=== PATIENT | male | born 1975 | race African-American/Black ===

== ENCOUNTER 2023-03-29 23:14 | Emergency (ER) | payer SELFPAY ==
[2023-03-29 23:16] VITALS: BP 161/105; PULSE 86; RESP 15; TEMP 37.2; O2SAT 98; BMI 28.7
--- NOTE | 2023-03-29 23:43 | EX.ED.DYSGE1 ---
HPI History of Present Illness Chief Complaint: Edema Informant: patient Narrative Narrative: 47-year-old male with no past medical history states he has had pain and swelling symmetrically in both lower legs for the past week. He states it waxes and wanes, and when it does it is symmetric bilaterally. He states also he has had some mild swelling and soreness in his knuckles of both hands. He denies any fevers, chills, dyspnea even with exertion or lying flat, chest discomfort, GI symptoms, or problems urinating. He states he has had pain in his right knee for weeks or months, he had some type of surgery on it about 10 years ago he thinks it was just a clean up and states that he saw a [facility] doctor in [place] who told him that maybe his right knee pain was due to an exotic parasite. He has had no travel out of the country or the area recently, or any other immobilization. No recent hospitalization or surgery for any reason. 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 PFSH PFS Medical History no medical history no medical history Home Medications prednisone 20 mg tablet 40 mg (2 x 20 mg) PO DAILY #8 TABLETS 03/30/23 [Rx Last Taken Unknown] Allergy/AdvReac Type Severity Reaction Status Date / Time No Known Allergies Allergy Verified 03/29/23 23:18 Surgical History (Updated 03/29/23 @ 23:[address] Humphrey Chaudhry MD) H/O right knee surgery Social History (Updated 03/29/23 @ 23:[address] Humphrey Chaudhry MD) alcohol intake: current alcohol intake frequency: a few times a week substance use type: does not use ROS ROS ED Constitutional Constitutional ED: Denies chills or fever(s) Eyes Eyes: Denies change in vision or diplopia ENT ENT ED: Denies rhinorrhea or sore throat Cardiovascular Cardiovascular: Reports leg edema; Denies chest pain or palpitations Respiratory/Chest Respiratory/Chest: Denies cough or dyspnea Gastrointestinal Gastrointestinal: Denies abdominal pain, diarrhea, nausea or vomiting Genitourinary Genitourinary ED: Denies dysuria or hematuria Musculoskeletal Musculoskeletal: Reports extremity pain; Denies back pain or neck pain Integumentary Denies abscess or rash Neurologic Neurologic: Denies headache(s), paresthesias or weakness Psychiatric Psychiatric: Denies anxiety or suicidal thoughts EXAM Physical Exam Const Vital Signs: 03/29/23 23:16 Temperature 98.9 F Temperature Source Temporal Pulse Rate 86 Respiratory Rate 15 Blood Pressure 161/105 H Blood Pressure Mean 123 Pulse Ox 98 Oxygen Delivery Method Room Air Positive well nourished and well developed General Appearance ED: well developed and NAD HEENT Reports moist mucous membranes normocephalic and atraumatic Eyes PERRL and EOMs intact bilaterally Neck full ROM, no lymphadenopathy, supple and no JVD Neck Narrative: No thyromegaly or thyroid tenderness Resp normal respiratory effort and clear to auscultation bilaterally Cardio regular rate, regular rhythm and no murmurs Rate: Negative for bradycardia or tachycardic GI non-tender and non-distended Auscultation: normoactive bowel sounds Palpation: soft Back/Spine no CVA tenderness General Back: other FROM Extremity General Extremety ED: Yes edema and tenderness; Negative for pulses abnormal General Extremity: edema bilateral lower extremity Details: moderate (To the mid-distal escobedo symmetrically bilaterally with blanching erythema, no induration/abscess/nidus for infection, and mild tenderness); Negative for pulses abnormal Neuro oriented x3, CN's II-XII intact bilaterally and no sensory deficits noted Sensorium / Orientation: awake and alert Motor Exam: strength 5/5 throughout Psych mental status grossly normal Skin no rashes or lesions noted and no wounds MDM MDM MDM Narrative Medical decision making narrative: Labs were obtained including ESR and CRP which are negative, arguing against acute infectious etiology here, he does have a bit of a leukocytosis but it is not neutrophils, he has a mild monocytosis of unknown significance at this time. Negative proBNP rules out acute congestive heart failure. He has some mild proteinuria but his serum protein and albumin numbers are normal, and he has no signs of renal failure. Whenever he gets the erythema and swelling it is bilateral symmetrically, and it goes down symmetrically. It seems to wax and wane. He has involvement in his fingers. All of this makes bilateral lower leg cellulitis very unlikely as the etiology here. Given this I am going to try him on a course of prednisone before he follows up with someone, to see if that helps. If it worsens everything, he is advised to return and discontinue the medication. Unknown if this could be something rheumatologic. 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 He does not have a PCP, so he was referred to the next doctor on the unassigned list. It is noted that his blood pressure is high, unknown if it has anything to do with this, certainly it is possible although he does not appear to have acute kidney injury right now. He will need to follow-up for recheck. Lab Data Attestation: I reviewed the patient's lab results. Labs: Laboratory Results - last 24 hr 03/29/23 03/30/23 23:59 00:05 WBC 13.0 H RBC 4.02 L Hgb 12.2 L Hct 37.2 L MCV 92.5 MCH 30.3 MCHC 32.8 RDW Std Deviation 47.1 H RDW Coeff of Bipin 13.9 Plt Count 272 MPV 10.2 Immature Gran % (Auto) 0.500 Neut % (Auto) 61.0 Lymph % (Auto) 25.9 Clark % (Auto) 10.6 H Eos % (Auto) 1.2 Baso % (Auto) 0.8 Absolute Neuts (auto) 7.9 H Absolute Lymphs (auto) 3.36 Nucleated RBC % 0 ESR 12 Sodium 137 Potassium 3.5 Chloride 102 Carbon Dioxide 31.0 Anion Gap 4 L BUN 6 L Creatinine 0.90 Estim Creat Clear Calc 99.22 Est GFR (MDRD) Af Amer 117 Est GFR (MDRD) Non-Af 97 BUN/Creatinine Ratio 6.7 L Glucose 103 Calcium 9.6 Total Bilirubin 0.50 AST 57 H ALT 43 Alkaline Phosphatase 70 C-React Prot Ext Range < 2.90 B-Natriuretic Peptide 7.3 Total Protein 7.8 Albumin 3.6 Globulin 4.2 Albumin/Globulin Ratio 0.9 Urine Color Yellow Urine Clarity Clear Urine pH 7.0 Ur Specific [place] 1.010 Urine Protein 30 H Urine Glucose (UA) Normal Urine Ketones Negative Urine Occult Blood Negative Urine Nitrite Negative Urine Bilirubin Negative Urine Urobilinogen 1 H Ur Leukocyte Esterase 25 H Urine RBC 0 SEEN Urine WBC 0 SEEN Ur Squamous Epith Cells 0 SEEN Urine Bacteria 0 SEEN Urine Mucus 0 SEEN Discharge Plan Triage Chief Complaint: Edema ED Provider: Humphrey Chaudhry Dx/Rx/DC Orders Clinical Impression: Edema of both lower legs, Episode of hypertension, Arthralgia of both hands Instructions: ED Peripheral Edema, Bilateral, ED Hypertension, To Be Confirmed Prescriptions: New prednisone 20 mg tablet 40 mg PO DAILY Qty: 8 0RF Primary Care Provider: Care Physician,No Primary Referrals: Fariba Gutierrez MD [Med Staff - Maintenance Helper Utility Engineer] - (call for appt) Care Physician,No Primary [Primary Care Provider] - Activity Restrictions/Additional Instructions: Since you received a dose of prednisone in the emergency department, the prescription can be started either the night of 03/30 or the morning of 03/31 and then taken every 24 hours afterwards until finished. If the medication seems to be making anything worse, you may safely discontinue it and discard the rest. If you develop any trouble breathing return to the emergency department. Your blood pressure was elevated, 161/105 in the ER, this needs to be rechecked as an outpatient, it may or may not be related. Disposition Disposition: Home, Self Care
[2023-03-30 00:04] LABS: Bacteria 0 SEEN /hpf (None Seen); Color, Urine Yellow (Yellow); Glucose, Dipstick Normal (Normal); Ketone-Dipstick Negative (Negative); Leukocyte Esterase-Dipstick 25 /ul (Negative); Mucous, Urine 0 SEEN /hpf (<or=2+); Nitrite-Dipstick Negative (Negative); Occult Blood-Urine Negative /ul (Negative); Protein-Dipstick 30 mg/dl (Negative); Red Blood Cells-Urine 0 SEEN /hpf (0-5); Squamous Epithelial Cells - UA 0 SEEN /hpf (0-5); Urine Bilirubin Dipstick Negative (Negative); Urine Clarity Clear (Clear); Urine Urobilinogen 1 mg/dl (Normal); White Blood Cells 0 SEEN /hpf (0-5)
[2023-03-30 00:15] LABS: Erythrocyte Sedimentation Rate 12 mm/hr (0-20)
[2023-03-30 00:17] LABS: Absolute Lymphocyte Count 3.36 X10^3/uL (0.83-4.51); Absolute Neutrophil Count 7.9 X10^3/uL (2.0-7.7); Basophil% 0.8 % (0-1); Eosinophil# 0.15 X10^3/uL; Eosinophils% 1.2 % (0-5); Hematocrit 37.2 % (40-54); Hemoglobin 12.2 g/dL (13.0-16.5); Lymphocyte # 3.36 X10^3/ul (0.83-4.51); Lymphocyte % 25.9 % (19-41); Mean Corp Hgb Conc 32.8 g/dL (32-36); Mean Corpuscular Hgb 30.3 pg (27.0-32.0); Mean Corpuscular Volume 92.5 fL (80-94); Mean Platelet Vol. 10.2 fl (6.2-12.0); Monocyte# 1.37 X10^3/uL; Monocyte% 10.6 % (0-10); NRBC Flagged by Analyzer 0 % (0-5); Neutrophil # 7.91 X10^3/uL (2.7-7.7); Platelet Count 272 K/mm3 (150-450); RBC Distribution Width CV 13.9 % (11.6-14.6); RBC Distribution Width SD 47.1 fl (35.1-43.9); Red Blood Count 4.02 M/mm3 (4.6-6.2)
[2023-03-30 00:35] LABS: ALB/GLOB Ratio 0.9 RATIO (0.9-2.4); AST(SGOT) 57 U/L (15-37); Alanine Aminotransfer ALT/SGPT 43 U/L (16-61); Albumin, Serum 3.6 g/dL (3.2-5.0); Alkaline Phosphatase 70 U/L (45-117); Anion Gap 4 (5-15); BUN 6 mg/dL (7-18); BUN/Creat Ratio 6.7 RATIO (10-20); CRP < 2.90 mg/L (0.0-3.0); Calcium,Total 9.6 mg/dL (8.5-10.1); Chloride 102 mmol/L (98-107); EST Glomerular Filtration Rate 97 mL/min (>60); Est Glom Filt Rate - Afr Amer 117 mL/min (>60); Estimated Creatinine Clearance 99.22 ml/min; Globulin 4.2 g/dL (2.2-4.2); Glucose 103 mg/dL (74-106); Potassium 3.5 mmol/L (3.5-5.1); Protein, Total 7.8 g/dL (6.4-8.2); Sodium Level 137 mmol/L (136-145)
[2023-03-30 00:36] LABS: BNP,B-Type NATRIURETIC PEPTIDE 7.3 pg/mL (0-100)
[2023-03-30] MEDS: predniSONE 20 MG Tablet 40 MG PO (01:51)
[2023-03-30 01:55] VITALS: BP 115/75; PULSE 76; RESP 18; O2SAT 95
== END 2023-03-30 01:57 | disposition home or self-care (01) ==
PROVIDERS: Emergency Provider Emergency Medicine; Visit Provider Emergency Medicine
DX: R60.0 Localized edema (principal); M79.661 Pain in right lower leg; M79.662 Pain in left lower leg; R03.0 Elevated blood-pressure reading, without diagnosis of hypertension; M25.541 Pain in joints of right hand; M25.542 Pain in joints of left hand; R80.9 Proteinuria, unspecified
CPT/HCPCS: 80053; 81001; 83880; 85025; 85652; 86140; 99283; A4216